=== PATIENT | male | born 1950 | race Caucasian/White ===

== ENCOUNTER 2016-05-31 10:08 | Emergency (ER) | payer OTHER ==
[2016-05-31] MEDS ORDERED: NS 0.9% 1000 ML* 1,000 ML IV ONE ×2 (11:01→12:42)
[2016-05-31] MEDS ORDERED: Ketorolac INJ* 30 MG/ML 1 ML VIAL IV ONE (11:01)
[2016-05-31] MEDS ORDERED: HYDROmorphone INJ* 1 MG/ML CARPUJECT SYRINGE IV ONE ×2 (11:01→12:42)
[2016-05-31] MEDS ORDERED: Ondansetron INJ* 2 MG/ML VIAL IV ONE (11:01)
[2016-05-31 11:19] LABS: Hematocrit 48 % (42-52); Hemoglobin 16.2 g/dl (14.0-18.0); Mean Corpuscular HGB Conc 34 g/dl (31-36); Mean Corpuscular Hemoglobin 29 pg (27-31); Mean Corpuscular Volume 84 fL (80-94); Mean Platelet Volume 9 um3 (7.4-10.4); Red Blood Count 5.68 10^6/ul (4.0-5.4); Red Cell Distribution Width 13 % (10.5-15); White Blood Count 10.1 10^3/ul (3.5-10.8)
[2016-05-31 11:30] LABS: Albumin 4.2 g/dL (3.2-5.2); BUN/Creatinine Ratio 18.9 (8-20); C Reactive Protein 1.47 mg/L (< 5.00); Calcium 9.1 mg/dL (8.6-10.3); EGFR African American 109.3 (>60); Globulin 2.7 g/dL (2-4); Potassium 3.7 mmol/L (3.5-5.0); Total Protein 6.9 g/dL (6.4-8.9)
--- NOTE | 2016-05-31 12:12 | RAD ---
INDICATION: Right flank pain COMPARISON: CT January 22, 2016 TECHNIQUE: Noncontrast axial source images were acquired from the level hemidiaphragms to the symphysis pubis as part of CT imaging for renal stone. Lung bases: The lung bases are clear. Liver: The liver is normal in size. Noncontrast imaging shows no evidence of a hepatic mass or ductal dilatation. Gallbladder: There are no calcified gallstones. There is no evidence of wall thickening or pericholecystic fluid.. Spleen: The spleen is normal in size. The noncontrast CT appearance is normal. Pancreas: Noncontrast imaging shows no pancreatic mass or ductal dilitation. Adrenal glands: No masses are identified. Kidneys/Bladder: There is a 3 mm calculus in the distal right ureter producing mild right-sided hydronephrosis and hydroureter. There is an additional 4 mm calculus in the upper pole the right kidney. There are multiple 1 to 2 mm nonobstructive calculi in the left kidney. There are no bladder calculi. There is no renal mass on noncontrast imaging. There is mild right-sided perinephric stranding Adenopathy: There is no evidence of intraperitoneal or retroperitoneal adenopathy. Evaluation is limited without oral contrast. Fluid collections: There are no free or localized fluid collections. Vessels: The aorta and iliac vessels are normal in caliber. There are no significant atherosclerotic changes. The IVC appears normal Pelvic organs: The prostate and seminal vesicles appear normal GI tract: Evaluation of the bowel is limited without oral contrast. The stomach, small bowel, and lower GI tract appear grossly normal. There are no obstructive findings. The appendix is visualized and appears normal. Soft tissues: No soft tissue abnormalities of the extraperitoneal abdomen or pelvis are identified. Osseous structures: There are no acute osseous findings. IMPRESSION: BILATERAL NEPHROLITHIASIS WITH 3 MM DISTAL RIGHT URETERAL] PRODUCING MILD OBSTRUCTIVE FINDINGS
[2016-05-31] MEDS ORDERED: Ondansetron ODT TAB* 4 MG PO ONE (12:42)
[2016-05-31 13:13] LABS: Urine Bacteria Absent (Absent); Urine Bilirubin Negative (Negative); Urine Glucose Negative (Negative); Urine Nitrite Negative (Negative)
[2016-05-31 14:52] VITALS: BP 131/67
--- NOTE | 2016-05-31 15:00 | ED ---
Ambreen Poe Rebecca, scribed for Jaime Oreilly MD on 05/31/16 at 1032 . Abdominal Pain/Male - HPI Summary HPI Summary: Garrett Ross is a 65 y/o M who presents to ED c/o abd pain. Pain began suddenly at 0700 this morning and has been constant since onset. Pain is in the RLQ and R flank with radiation to the R testicle. Pain is currently severe, ranked 10/10 and characterized as sharp. Sx aggravated and alleviated by nothing , unchanged by Advil (taken at 0700). Additionally c/o N/V and dizziness. PMHx kidney stones. Current sx are similar to prior episodes of kidney stones, but more severe. - History of Current Complaint Chief Complaint: EDFlankPain Stated Complaint: RT SIDE FLANK PAIN/POSS KIDNEY STONE Time Seen by Provider: 05/31/16 10:30 Hx Obtained From: Patient Onset/Duration: Sudden Onset, Lasting Hours - 3 hours, Still Present Timing: Constant Severity Initially: Severe Severity Currently: Severe Pain Intensity: 10 Pain Scale Used: 0-10 Numeric Location: Discrete At: RLQ, Flank - Right Radiates: Yes Radiates to: Inguinal - R testicle Character: Sharp Aggravating Factor(s): Nothing Alleviating Factor(s): Nothing Associated Signs And Symptoms: Positive: Dizzy, Nausea, Vomiting Similar Episode/Dx As:: Prior kidney stones - Allergies/Home Medications Allergies/Adverse Reactions: Allergies Allergy/AdvReac Type Severity Reaction Status Date / Time HAYFEVER/SEASONAL Allergy SNEEZING, Uncoded 05/31/16 10:14 ITCHY WATERY EYES PMH/Surg Hx/FS Hx/Imm Hx History: Reports: Hx Kidney Stones - BILATERAL PRESENTLY Musculoskeletal History: Reports: Hx Arthritis - BILATERAL WRIST, Hx Tendonitis - POSSIBLE BILATERAL WRIST Sensory History: Reports: Hx Contacts or Glasses - GLASSES Denies: Hx Hearing Aid Opthamlomology History: Reports: Hx Contacts or Glasses - GLASSES - Surgical History Surgery Procedure, Year, and Place: 1988 SEPTOPLASTY, [facility] [place]. 2008 CYSTOSCOPY WITH LITHOTRIPSY LEFT KIDNEY STONE, [facility] [place] Hx Anesthesia Reactions: No Infectious Disease History: No Infectious Disease History: Denies: Traveled Outside the [place] in Last 30 Days - Family History Known Family History: Positive: Hypertension, Diabetes - Social History Alcohol Use: None Substance Use Type: Reports: None Smoking Status (MU): Never Smoked Tobacco Review of Systems Positive: Abdominal Pain - RLQ, R flank radiating into R testicle, Vomiting, Nausea Neurological: Other - Dizziness All Other Systems Reviewed And Are Negative: Yes Physical Exam Triage Information Reviewed: Yes Vital Signs On Initial Exam: Initial Vitals Temp Pulse Resp BP Pulse Ox 98.7 F 73 22 143/73 98 05/31/16 10:14 05/31/16 10:14 05/31/16 10:14 05/31/16 10:14 05/31/16 10:14 Vital Signs Reviewed: Yes Appearance: Positive: Well-Appearing, No Pain Distress Skin: Positive: Diaphoretic, Pale Head/Face: Positive: Normal Head/Face Inspection Eyes: Positive: Normal ENT: Positive: Normal ENT inspection Neck: Positive: Supple, Nontender Respiratory/Lung Sounds: Positive: Clear to Auscultation, Breath Sounds Present Cardiovascular: Positive: RRR, Pulses are Symmetrical in both Upper and Lower Extremities Abdomen Description: Positive: Nontender, Soft Bowel Sounds: Positive: Present Musculoskeletal: Positive: Normal - Back is nontender Neurological: Positive: Normal Psychiatric: Positive: Normal Diagnostics - Vital Signs Vital Signs Temp Pulse Resp BP Pulse Ox 05/31/16 10:14 98.7 F 73 22 143/73 98 - Laboratory Lab Results: Lab Results 05/31/16 05/31/16 05/31/16 Range/Units 10:30 10:30 10:30 WBC 10.1 (3.5-10.8) 10^3/ul RBC 5.68 H (4.0-5.4) 10^6/ul Hgb 16.2 (14.0-18.0) g/dl Hct 48 (42-52) % MCV 84 (80-94) fL MCH 29 (27-31) pg MCHC 34 (31-36) g/dl RDW 13 (10.5-15) % Plt Count 190 (150-450) 10^3/ul MPV 9 (7.4-10.4) um3 Neut % (Auto) 82.3 (38-83) % Lymph % (Auto) 10.3 L (25-47) % [place] % (Auto) 6.3 (1-9) % Eos % (Auto) 0.1 (0-6) % Baso % (Auto) 1.0 (0-2) % Absolute Neuts (auto) 8.3 H (1.5-7.7) 10^3/ul Absolute Lymphs (auto) 1.0 (1.0-4.8) 10^3/ul Absolute Monos (auto) 0.6 (0-0.8) 10^3/ul Absolute Eos (auto) 0 (0-0.6) 10^3/ul Absolute Basos (auto) 0.1 (0-0.2) 10^3/ul Absolute Nucleated RBC 0.01 10^3/ul Nucleated RBC % 0 Sodium 134 (133-145) mmol/L Potassium 3.7 (3.5-5.0) mmol/L Chloride 105 (101-111) mmol/L Carbon Dioxide 19 L (22-32) mmol/L Anion Gap 10 (2-11) mmol/L BUN 17 (6-24) mg/dL Creatinine 0.90 (0.67-1.17) mg/dL Est GFR ( Amer) 109.3 (>60) Est GFR (Non-Af Amer) 85.0 (>60) BUN/Creatinine Ratio 18.9 (8-20) Glucose 112 H (70-100) mg/dL Lactic Acid 1.3 (0.5-2.0) mmol/L Calcium 9.1 (8.6-10.3) mg/dL Total Bilirubin 1.00 (0.2-1.0) mg/dL AST 16 (13-39) U/L ALT 17 (7-52) U/L Alkaline Phosphatase 87 (34-104) U/L Troponin I 0.00 (<0.04) ng/mL C-Reactive Protein 1.47 (< 5.00) mg/L Total Protein 6.9 (6.4-8.9) g/dL Albumin 4.2 (3.2-5.2) g/dL Globulin 2.7 (2-4) g/dL Albumin/Globulin Ratio 1.6 (1-3) Lipase 31 (11.0-82.0) U/L Urine Color Urine Appearance Urine pH (5-9) Ur Specific [place] (1.010-1.030) Urine Protein (Negative) Urine Ketones (Negative) Urine Blood (Negative) Urine Nitrate (Negative) Urine Bilirubin (Negative) Urine Urobilinogen (Negative) Ur Leukocyte Esterase (Negative) Urine WBC (Auto) (Absent) Urine RBC (Auto) (Absent) Ur Squamous Epith Cells (Absent) Urine Bacteria (Absent) Urine Glucose (Negative) 05/31/16 Range/Units 13:00 WBC (3.5-10.8) 10^3/ul RBC (4.0-5.4) 10^6/ul Hgb (14.0-18.0) g/dl Hct (42-52) % MCV (80-94) fL MCH (27-31) pg MCHC (31-36) g/dl RDW (10.5-15) % Plt Count (150-450) 10^3/ul MPV (7.4-10.4) um3 Neut % (Auto) (38-83) % Lymph % (Auto) (25-47) % Providence % (Auto) (1-9) % Eos % (Auto) (0-6) % Baso % (Auto) (0-2) % Absolute Neuts (auto) (1.5-7.7) 10^3/ul Absolute Lymphs (auto) (1.0-4.8) 10^3/ul Absolute Monos (auto) (0-0.8) 10^3/ul Absolute Eos (auto) (0-0.6) 10^3/ul Absolute Basos (auto) (0-0.2) 10^3/ul Absolute Nucleated RBC 10^3/ul Nucleated RBC % Sodium (133-145) mmol/L Potassium (3.5-5.0) mmol/L Chloride (101-111) mmol/L Carbon Dioxide (22-32) mmol/L Anion Gap (2-11) mmol/L BUN (6-24) mg/dL Creatinine (0.67-1.17) mg/dL Est GFR ( Amer) (>60) Est GFR (Non-Af Amer) (>60) BUN/Creatinine Ratio (8-20) Glucose (70-100) mg/dL Lactic Acid (0.5-2.0) mmol/L Calcium (8.6-10.3) mg/dL Total Bilirubin (0.2-1.0) mg/dL AST (13-39) U/L ALT (7-52) U/L Alkaline Phosphatase (34-104) U/L Troponin I (<0.04) ng/mL C-Reactive Protein (< 5.00) mg/L Total Protein (6.4-8.9) g/dL Albumin (3.2-5.2) g/dL Globulin (2-4) g/dL Albumin/Globulin Ratio (1-3) Lipase (11.0-82.0) U/L Urine Color Yellow Urine Appearance Cloudy Urine pH 6.0 (5-9) Ur Specific [place] 1.017 (1.010-1.030) Urine Protein 1+(30 mg/dl) H (Negative) Urine Ketones Trace H (Negative) Urine Blood 3+ H (Negative) Urine Nitrate Negative (Negative) Urine Bilirubin Negative (Negative) Urine Urobilinogen Negative (Negative) Ur Leukocyte Esterase Negative (Negative) Urine WBC (Auto) Absent (Absent) Urine RBC (Auto) 3+(>10/hpf) H (Absent) Ur Squamous Epith Cells Present H (Absent) Urine Bacteria Absent (Absent) Urine Glucose Negative (Negative) Result Diagrams: 05/31/16 10:30 05/31/16 10:30 Lab Statement: Any lab studies that have been ordered have been reviewed, and results considered in the medical decision making process. - CT CT Abd/Pel CT Interpretation Completed By: Radiologist - BILATERAL NEPHROLITHIASIS WITH 3 MM DISTAL RIGHT URETERAL] PRODUCING MILD OBSTRUCTIVE FINDINGS Re-Evaluation - Re-Evaluation First Eval Re-Evaluation Time: 12:53 Change: Improved Comment: Discussed results and findings. He is feeling significantly better. Abdominal Pain Fem Course/Dx - Course Assessment/Plan: Garrett Ross is a 65 y/o M with a CC of RLQ and R flank pain with radiation to the R testicle for 3 hours PRESS LOADER (sudden onset at 0700 this morning). Additionally c/o N/V and dizziness. PMHx kidney stones. Current presentation is similar to prior episodes of kidney stones, but more severe. CT Abd/Pel reveals: "BILATERAL NEPHROLITHIASIS WITH 3 MM DISTAL RIGHT URETERAL] PRODUCING MILD. OBSTRUCTIVE FINDINGS." Pt will be D/C to home with a dx of kidney stone and a followup with his PCP. - Diagnoses Provider Diagnoses: Kidney stone Discharge - Discharge Plan Condition: Stable Disposition: HOME Prescriptions: Ondansetron ODT TAB* [Zofran Odt TAB*] 4 mg PO Q6H PRN #20 tab.odt PRN Reason: Nausea/Vomiting Tamsulosin CAP* [Flomax CAP*] 0.4 mg PO DAILY #7 cap oxyCODONE/Acetamin 5/325 MG* [Percocet 5/325 TAB*] 1 tab PO Q6H PRN #20 tab MDD 4 PRN Reason: Pain Patient Education Materials: Kidney Stones (ED) Referrals: Robby Meyer MD [Medical Doctor] - (Follow up with Dr. Meyer, urologist, in the next 3 days. ) The documentation as recorded by the Ambreen anaya Rebecca accurately reflects the service I personally performed and the decisions made by , Jaime Oreilly MD.
== END 2016-05-31 14:51 | disposition home or self-care (01) ==
LOC: ED 10:08
DX: N20.0 Calculus of kidney (principal); R10.31 Right lower quadrant pain; R42 Dizziness and giddiness; R11.2 Nausea with vomiting, unspecified
CPT/HCPCS: 36415; 74176; 80053; 81003; 81015; 83605; 83690; 84484; 85025; 86140; 96374; 96375; 99283; A9270-GY; J1170; J1885; J2405

== ENCOUNTER 2016-08-22 07:43 | Day surgery (SDC) | payer OTHER ==
--- NOTE | 2016-08-13 15:45 | HP ---
PREOPERATIVE HISTORY AND PHYSICAL EXAMINATION: DATE OF SURGERY/ADMISSION: 08/22/16 DATE OF OFFICE VISIT/ENCOUNTER: 08/13/16 ATTENDING SURGEON: Ellen Graham MD PROCEDURE: Right wrist carpal tunnel release. CHIEF COMPLAINT: Right hand numbness and tingling. HISTORY OF PRESENT ILLNESS: This is a 65-year-old male who complains of numbness and tingling in bi lateral hands, worse on the right than on the left. He also had pain in his bilateral wrists and sw elling on the dorsal aspect of the wrist. He does a lot of working out including lifting weights an d karate, but denies any injury to either wrist or hand. He has symptoms when he wakes up in the mo rning and symptoms during the day. The symptoms that bother him the most are the numbness and tingl ing, not so much of the pain. The numbness and tingling in his right hand involves his thumb, index , and middle finger. Clinically, he has been determined to have some carpal tunnel syndrome and the patient is interested in proceeding with surgical intervention at this point. PAST MEDICAL HISTORY: 1. History of kidney stones. 2. Seasonal allergies. PAST SURGICAL HISTORY: 1. Septoplasty. 2. Kidney stone blasting. 3. Tonsillectomy. 4. Turbinate reduction CURRENT MEDICATIONS: None. ALLERGIES: No known drug allergies. FAMILY HISTORY: Diabetes and heart disease. 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 He denies tobacco use or recreational drug use and alcohol use and he exercises on a regular basis. REVIEW OF SYSTEMS: General: Negative for fevers, chills, or night sweats. No known anesthesia pro blems. HEENT: Negative for headache, lightheadedness, or syncopal episodes. Integumentary: Negat juanito for abrasions, lesions, or open wounds. Cardiothoracic: Negative for hypertension, chest pain, palpitations, or edema. Pulmonary: Negative for shortness of breath with exertion, chronic cough, or COPD. GI: Negative for nausea, vomiting, diarrhea, constipation, or GERD. : Positive for hi story of kidney stones, negative for nocturia, urinary frequency, urgency or history of UTIs. Muscu loskeletal: Positive for current complaint. Negative for chronic or intermittent back pain or histo ry of fractures. Neurological: Negative for history of seizure, stroke, or epilepsy. Endocrine: Ne gative for diabetes or thyroid issues. Hematologic: Negative for easy bruising, anemia, excessive bleeding, or history of DVT. Infectious Disease: Negative for history of MRSA, hepatitis C, or HIV . PHYSICAL EXAMINATION GENERAL: Well-developed, well-nourished, 65-year-old male, in no acute distress. VITAL SIGNS: Height 5 feet 10 inches, weight 187 pounds, pulse rate 68, blood pressure 122/71. HEENT: Normocephalic, atraumatic. Pupils are equal, round, reactive to light and accommodation. E xtraocular movements are intact. NECK: Supple. No palpable lymph nodes. Throat is clear. PULMONARY: Lungs are clear to auscultation bilaterally. No wheezes, rales, or rhonchi. CARDIOVASCULAR: Regular rate and rhythm. S1, S2. No murmurs, rubs, or gallops. No edema. ABDOMEN: Positive bowel sounds. Soft, nontender. NEUROLOGIC: Alert and oriented x3. Cranial nerves II through XII are intact. Sensation is intact t o light touch. PERIPHERAL VASCULAR: 2+ radial and ulnar pulses. Negative Denilson test. MUSCULOSKELETAL: On exam of the right hand, he has thenar wasting. Upon inspection, he can flex an d extend his fingers into a full fist. He has decreased sensation to light touch on the tips of his index, thumb, and middle fingers on the right hand. Positive Tinel's sign. He has swelling and st iffness in his bilateral wrists, worse on the right than on the left that has relatively good motion with flexion and extension of both wrists. IMAGING STUDIES: X-rays AP and lateral and oblique of both wrists showed severe degenerative arthr itis from old scapholunate ligament injuries bilaterally. IMPRESSION: Right carpal tunnel syndrome. Bilateral scapholunate advanced collapse. PLAN: The patient is scheduled to undergo a right carpal tunnel release with Dr. Graham on 08/22/16. He will return to the office in 10 to 14 days postop for followup and suture removal. A prescript ion for Ultracet was e-scribed to the patient's pharmacy for postoperative pain management. YOSELIN GOLD [id number]/[facility] #: [id number]
[~2016-08-22 07:43] MED LIST: Famotidine IV* 10 MG/ML 2 ML (20 mg) IV ONE
[2016-08-22] MEDS ORDERED: Buffered Lidocaine 1% SYRIN* 5 ML/SYR SYRINGE ONE (07:58)
[2016-08-22] MEDS ORDERED: Famotidine IV* 10 MG/ML 2 ML (20 mg) ONE (07:59)
[2016-08-22] MEDS ORDERED: Lidocaine 1% INJ* 10 MG/ML 30 ML SDV ONE (08:29)
[2016-08-22] MEDS ORDERED: fentaNYL* 50 MCG/ML 2 ML VIAL (100 MCG VIAL) ONE (09:11)
[2016-08-22] MEDS ORDERED: Midazolam* 1 MG/ML 5 ML VIAL (5 MG) ONE (09:11)
[2016-08-22] MEDS ORDERED: Ketorolac INJ* 30 MG/ML 1 ML VIAL ONE (09:18)
[2016-08-22] MEDS ORDERED: Propofol* 10 MG/ML 20 ML BTL IV PUSH ONE (09:18)
[2016-08-22] MEDS ORDERED: Ondansetron INJ* 2 MG/ML VIAL ONE (09:18)
[2016-08-22] MEDS ORDERED: Lidocaine 2% PF * 5 ML VIAL ONE (09:18)
[2016-08-22] MEDS ORDERED: Acetaminophen TAB* 325 MG PO PRN (09:36)
[2016-08-22 10:03] VITALS: BP 105/74
--- NOTE | 2016-08-23 | OP ---
DATE OF OPERATION: 08/22/16 [facility] DATE OF : 52 SURGEON: Ellen Graham MD SALMON GILLNET VESSEL OPERATOR: YOSELIN Bonner ANESTHESIOLOGIST: Carlotta Wong MD ANESTHESIA: Local MAC. PRE-OP DIAGNOSIS: Right carpal tunnel syndrome. POST-OP DIAGNOSIS: Right carpal tunnel syndrome. OPERATIVE PROCEDURE: Right carpal tunnel release. ESTIMATED BLOOD LOSS: Zero. TOURNIQUET TIME: About 8 minutes. INDICATION FOR PROCEDURE: Garrett is a 65-year-old man with numbness and tingling in the median nerve distribution of his right hand. He presents for right carpal tunnel release. DESCRIPTION OF PROCEDURE: The patient was brought to the operating room, was given a sedation anesthetic and a local infiltration of 10 cc of 1% plain lidocaine. Skin of his right hand and forearm was prepped and draped in the usual sterile fashion. The hand and forearm were exsanguinated and the tourniquet elevated to 250 mmHg. A longitudinal incision was made in the palm in line with the ring finger. We dissected through the subcutaneous tissue down to the transverse carpal ligament. The ligament was divided sharply with a knife and then more proximally with the scissors. The nerve was dissected free from the surrounding tissue and there was an area of moderate compression at the mid portion of the ligament. The wound was irrigated and skin edges were reapproximated with 4-0 nylon suture. The wound was dressed with Xeroform , 4x4, Webril, and an Narinder wrap. The patient tolerated the procedure well and was brought to the recovery room in good condition. [id number]/[facility] #: [id number] [facility]ITAL[facility]
== END 2016-08-22 10:15 | disposition home or self-care (01) ==
LOC: OREAST 07:43
PROVIDERS: ATTEND Orthopaedic Surgery
DX: G56.01 Carpal tunnel syndrome, right upper limb (principal); M19.90 Unspecified osteoarthritis, unspecified site
CPT/HCPCS: J1885; J2001; J2250; J2405; J2704; J3010

== ENCOUNTER → 2017-06-05 07:16 | Day surgery (SDC) | payer OTHER ==
--- NOTE | 2017-06-03 10:32 | HP ---
CC: Dr. Mejia * HISTORY AND PHYSICAL: DATE OF PLANNED ADMISSION AND SURGERY: 06/05/17 HISTORY OF PRESENT ILLNESS: Mr. Ross is a 66-year-old white male who is admitted with a right ureteral calculus for cystoscopy, right ureteroscopy, laser lithotripsy, and right ureteral stent placement. Mr. Ross is a known stone former, and in 2005, he required a left ureteroscopy , laser lithotripsy for a left ureteral calculus. He was worked up in March 2017 because of post-exercise gross hematuria and mild left flank pain. He had a noncontrast CT of the abdomen and pelvis, which showed a 6-mm calculus in the upper pole of the right kidney and calcifications within the prostate. Punctate calcui seen in the Lt kidney. No other abnormalities were noted. He had an office cystoscopy, which showed moderate prostate enlargement, but no bladder lesions or calculi. The patient presented to my office on 06/02/17 with recurrent episodes of acute right flank pain. The pain was severe enough that he took oxycodone for pain control. He did not have any fever or chills and no voiding symptoms. Renal ultrasound in my office showed moderate Rt hydronephrosis and hydroureter and 6- mm calculus located in the right ureter at the level of the pelvic brim. The patient was managed conservatively with increased fluid intake, alpha lazaro, and pain medications. He continued to be symptomatic. Because of the persistent symptoms, he is admitted for the above procedure. PAST MEDICAL HISTORY AND SYSTEM REVIEW: He is in excellent health. MEDICATIONS: He is on no chronic medications. ALLERGIES: He denies any allergies to medications. REVIEW OF SYSTEMS: He denies any cardiac or pulmonary diseases or symptoms. PHYSICAL EXAMINATION GENERAL: Pleasant healthy-looking white male, who is in moderate pain. VITAL SIGNS: Blood pressure 130/70, pulse of 80, temperature 96.5. LUNGS: Clear. HEART: Regular and rhythmic. No murmurs. ABDOMEN: Soft. No masses or tenderness. There is mild right CVA tenderness. EXTERNAL GENITALIA: Normal. Prostate exam done earlier this year showed a slightly enlarged, but nonsuspicious prostate. IMPRESSION: Recurrent episodes of right flank pain secondary to a 6-mm right ureteral calculus. PLAN: Right ureteroscopy, laser lithotripsy, and right ureteral stent placement. I discussed the above plans with the patient and his and all their questions were answered. [id number]/[facility] [place]: [id number] KISHOR
[~2017-06-05 07:16] MED LIST changes: +Buffered Lidocaine 0.9% SYRIN* 5 ML/SYR SYRINGE INTRADERM ONE; +Dexamethasone IV* 4 MG/ML 1 ML (4 MG) ONE; +Famotidine IV* 10 MG/ML 2 ML (20 mg) ONE; +Iohexol 180 (CONTRAST) 10 ML SDV IV ONE; +Ketorolac INJ* 30 MG/ML 1 ML VIAL ONE; +Lidocaine 2% PF * 5 ML VIAL ONE; +Metoclopramide TAB* 10 MG ONE; +Metoclopramide TAB* 10 MG PO ONE; +Midazolam* 1 MG/ML 5 ML VIAL (5 MG) ONE; +Naloxone* 0.4 MG/ML 1 ML VIAL IV PRN; +Ondansetron INJ* 2 MG/ML VIAL IV PRN; +Ondansetron INJ* 2 MG/ML VIAL ONE; +Propofol* 10 MG/ML 20 ML BTL IV PUSH ONE; +cefTRIAXone(*) 2 GM ADDV.VIAL IVPB ONE; +fentaNYL* 50 MCG/ML 2 ML VIAL (100 MCG VIAL) IV PRN; +fentaNYL* 50 MCG/ML 2 ML VIAL (100 MCG VIAL) ONE
--- NOTE | 2017-06-05 12:15 | RAD ---
INDICATION: Right ureteral stent insertion, calculus of kidney COMPARISONS: CT dated January 23, 2017 TECHNIQUE: Fluoroscopy was provided for a retrograde pyelogram and stent placement. Total fluoroscopy time is: 3 seconds FINDINGS: Spot images demonstrate contrast within the right renal collecting system. A right ureteral stent is noted. IMPRESSION: FLUOROSCOPY WAS PROVIDED FOR A RETROGRADE PYELOGRAM AND STENT PLACEMENT CPT II Codes: 6045F
[2017-06-05 13:57] VITALS: BP 141/83
--- NOTE | 2017-06-06 10:53 | OP ---
CC: Dr. Mejia OPERATIVE REPORT: DATE OF OPERATION: 06/05/17 DATE OF : 52 SURGEON: Rico Polanco MD ANESTHESIOLOGIST: Rudy Martins MD ANESTHESIA: General. PRE-OP DIAGNOSIS: Right ureteral calculus (7 mm). POST-OP DIAGNOSIS: Right ureteral calculus (7 mm). OPERATIVE PROCEDURE: 1. Cystoscopy. 2. Right ureteroscopy and laser lithotripsy of right ureteral calculus. 3. Right retrograde pyelography and placement of right ureteral stent (6-Kinyarwanda ). INDICATIONS: Mr. Ross is a 66-year-old white male, who is a known sone former and who was worked up 4 months ago because of recurrent episodes of gross hematuria and left flank pain and was noted to have punctate nonobstructing calculi in the left kidney and a 7 mm calculus in the upper pole calyx of the right kidney. Cystoscopy showed no bladder lesions and the gross hematuria was assumed to be secondary to the Rt renal calculus. He presented to the office 2 days ago with recurrent episodes of right renal colic and was noted on renal ultrasound to have a 7 to 8 mm obstructing calculus in the Rt ureter just distal to its mid course. Because of the size of the stone, the persistent pain, the patient is admitted for the above procedure. PATHOLOGY AT CYSTOSCOPY: The penile and bulbar urethrae looked normal. The prostatic urethra measured 2.5 cm in length and there was only moderate enlargement and obstruction by the prostate. Examination of the bladder showed normal ureteral orifices. There were no suspicious bladder lesions seen. No calculi or diverticuli were noted. Clear efflux was seen coming from the left ureteral orifice and pinkish efflux from the right orifice. Upon right ureteroscopy, there was a 7 to 8 mm calculus that was impacted in the lower half of the right ureter about 5 cm above the level of the orifice. The calculus had the gross appearance of a calcium oxalate stone. Retrograde pyelography showed moderate right hydronephrosis. DESCRIPTION OF PROCEDURE: After successful general anesthesia, the patient was placed in the lithotomy position and was prepped and draped for a cystoscopy. Cystoscopy was performed. The bladder was carefully inspected and the above findings were noted. A flexible tip guidewire was then introduced into the right orifice and positioned in the area of the renal pelvis. A 6.5 semirigid ureteroscope was then introduced into the bladder. A flexible tip basket was passed through the port of the ureteroscope and its flexible tip was introduced into the right orifice allowing the atraumatic introduction of the ureteroscope inside the ureter. The calculus was identified. Using the 550 micron laser fiber, the stone was broken into multiple fragments. Care was taken not to cause any damage to the ureteral wall. The stone fragments were then extracted with the basket and sent for stone analysis. Final inspection showed intact ureteral wall and no residual stone fragments. Retrograde pyelography was then performed. A size 6-Kinyarwanda stent was then placed with the proximal end coiling in the renal pelvis and the distal end coiling inside the bladder. There was good drainage of contrast from the kidney and no extravasation. The patient tolerated the procedure well and left the operating room in good condition. The plan is to leave the stent in place for 7 to 10 days. It will be removed in the office under local anesthesia. [id number]/[facility] #: [id number] MTDD
== END | disposition home or self-care (01) ==
LOC: OR 07:16
PROVIDERS: ATTEND Urology
DX: N13.2 Hydronephrosis with renal and ureteral calculous obstruction (principal); R31.0 Gross hematuria; Z87.442 Personal history of urinary calculi
CPT/HCPCS: 74420; 82365; 88300; A9270-GY; C1876; J0696; J1100; J1885; J2250; J2405; J2704; J3010

== ENCOUNTER 2018-08-03 10:01 | Day surgery (SDC) | payer OTHER ==
--- NOTE | 2018-06-28 16:15 | HP ---
PREOPERATIVE HISTORY AND PHYSICAL: DATE OF ADMISSION/SURGERY: 07/02/18 - [facility] DATE OF OFFICE VISIT/ENCOUNTER: 06/28/18 ATTENDING SURGEON: Ellen Graham MD * (DICTATED BY YOSELIN GOLD) PROCEDURE: Left wrist carpal tunnel release. CHIEF COMPLAINT: Numbness and tingling in left hand. HISTORY OF PRESENT ILLNESS: This is a 67-year-old male who complains of numbness and tingling in his left hand that has been ongoing for a few years now. He does a lot of working out including lifting weights and karate, but denies any injury to the left wrist. He has symptoms when he wakes up in the morning and symptoms starting the day. The numbness and the tingling are most bothersome and involve his thumb, index and middle finger. He had a carpal tunnel release performed on his right wrist a couple of years ago and has done quite well with that. He is now interested in pursuing a carpal tunnel release for his left wrist. The patient is currently being treated for prostatitis which he has had over a year. He is on levofloxacin for a 4-week course. PAST MEDICAL HISTORY: 1. History of kidney stones. 2. Seasonal allergies. 3. Prostatitis. PAST SURGICAL HISTORY: 1. Right carpal tunnel release. 2. Septoplasty. 3. Kidney stone blasting. 4. Tonsillectomy. 5. Turbinate reduction. CURRENT MEDICATIONS: 1. Levofloxacin 500 mg 1 tab daily. 2. Probiotic. ALLERGIES: No known drug allergies. FAMILY MEDICAL HISTORY: Diabetes and heart disease. 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 He denies tobacco use, recreational drug use and does not drink alcohol. He exercises on a regular basis. REVIEW OF SYSTEMS: Negative for general, cephalic, cardiovascular, respiratory , GI. is positive for pelvic pain secondary to prostatitis. Negative for other musculoskeletal, integumentary, endocrine, neurologic, and hematologic symptoms. Infectious Disease: Negative for MRSA, hepatitis C, HIV. PHYSICAL EXAMINATION GENERAL: Well-developed, well-nourished 67-year-old male, in no acute distress. VITAL SIGNS: Height 5 feet 10 inches, weight 188 pounds, pulse rate 72, blood pressure 116/70. HEENT: Normocephalic, atraumatic. Pupils are equal, round, and reactive to light and accommodation. Extraocular movements are intact. Throat is clear. NECK: Supple. No palpable lymph nodes. PULMONARY: Lungs are clear to auscultation bilaterally. No wheezes, rales, or rhonchi. CARDIOVASCULAR: Regular rate and rhythm. S1, S2. No murmurs, rubs, or gallops. No edema. ABDOMEN: Positive bowel sounds, soft, nontender. NEUROLOGICAL: Alert and oriented x3. Cranial nerves II through XII are intact. Sensation is intact to light touch. MUSCULOSKELETAL: On exam of his left hand, he has no thenar wasting, but he does have weakness with thumb abduction. He has good motion in his fingers. He has a positive Tinel sign at the wrist and decreased sensation to light touch at the tips of the index, thumb, and middle fingers. He has some stiffness at the left wrist when he moves through motion but there is no significant decrease of his motion. 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 IMPRESSION: Left carpal tunnel syndrome. PLAN: The patient is scheduled to undergo a left carpal tunnel release with Dr. Graham on 07/02/18. He will return to the office 10 days postop for followup and suture removal. A prescription for Ultracet was e-scribed to the patient's pharmacy for postoperative pain management. YOSELIN GOLD [id number]/[facility] #: [id number] KISHOR
[~2018-08-03 10:01] MED LIST changes: -Buffered Lidocaine 0.9% SYRIN* 5 ML/SYR SYRINGE INTRADERM ONE; +Buffered Lidocaine 1% SYRIN* 1 ML/SYRINGE INTRADERM ONE; -Dexamethasone IV* 4 MG/ML 1 ML (4 MG) ONE; -Famotidine IV* 10 MG/ML 2 ML (20 mg) IV ONE; -Famotidine IV* 10 MG/ML 2 ML (20 mg) ONE; -Iohexol 180 (CONTRAST) 10 ML SDV IV ONE; -Ketorolac INJ* 30 MG/ML 1 ML VIAL ONE; +Lactated Ringers 1000 ML Bag* 1,000 ML IV SCH; -Lidocaine 2% PF * 5 ML VIAL ONE; -Metoclopramide TAB* 10 MG ONE; -Metoclopramide TAB* 10 MG PO ONE; -Midazolam* 1 MG/ML 5 ML VIAL (5 MG) ONE; -Naloxone* 0.4 MG/ML 1 ML VIAL IV PRN; -Ondansetron INJ* 2 MG/ML VIAL IV PRN; -Ondansetron INJ* 2 MG/ML VIAL ONE; -Propofol* 10 MG/ML 20 ML BTL IV PUSH ONE; -cefTRIAXone(*) 2 GM ADDV.VIAL IVPB ONE; -fentaNYL* 50 MCG/ML 2 ML VIAL (100 MCG VIAL) IV PRN; -fentaNYL* 50 MCG/ML 2 ML VIAL (100 MCG VIAL) ONE
[2018-08-03] MEDS ORDERED: Lidocaine 1% INJ* 10 MG/ML 30 ML SDV ONE (11:10)
[2018-08-03] MEDS ORDERED: Midazolam* 1 MG/ML 5 ML VIAL (5 MG) ONE (11:15)
[2018-08-03] MEDS ORDERED: fentaNYL* 50 MCG/ML 2 ML VIAL (100 MCG VIAL) ONE (11:20)
[2018-08-03] MEDS ORDERED: Propofol* 10 MG/ML 20 ML BTL ONE (11:20)
[2018-08-03] MEDS ORDERED: Dexamethasone IV* 4 MG/ML 1 ML (4 MG) ONE (11:29)
[2018-08-03] MEDS ORDERED: Ondansetron INJ* 2 MG/ML VIAL ONE (11:35)
[2018-08-03 11:53] VITALS: BP 115/72
[2018-08-03] MEDS ORDERED: Naloxone* 0.4 MG/ML 1 ML VIAL IV PRN (11:59)
[2018-08-03] MEDS ORDERED: Ondansetron INJ* 2 MG/ML VIAL IV PRN (11:59)
[2018-08-03] MEDS ORDERED: oxyCODONE/Acetamin 5/325 MG* TAB PO PRN (11:59)
[2018-08-03] MEDS ORDERED: fentaNYL* 50 MCG/ML 2 ML VIAL (100 MCG VIAL) IV PRN (11:59)
--- NOTE | 2018-08-03 14:20 | OP ---
DATE OF OPERATION: 08/03/18 [facility] DATE OF : 52 SURGEON: Ellen Graham MD TRUCK BENCH MECHANIC: YOSELIN Knox ANESTHESIA: Local MAC. PRE-OP DIAGNOSIS: Left carpal tunnel syndrome. POST-OP DIAGNOSIS: Left carpal tunnel syndrome. OPERATIVE PROCEDURE: Left carpal tunnel release. INDICATIONS: Garrett is a 67-year-old man who has numbness and tingling in the median nerve distribution of his left hand. He presents for left carpal tunnel release. ESTIMATED BLOOD LOSS: Zero. TOURNIQUET TIME: Approximately 8 minutes. DESCRIPTION OF PROCEDURE: The patient was brought to the operating room, was given a sedation anesthetic, and local infiltration of 10 cc of 1% plain lidocaine to the palm of his left hand. Skin of his left hand and forearm was prepped in the usual sterile fashion. The hand and forearm were exsanguinated and the tourniquet elevated to 250 mmHg. A longitudinal incision was made in the palm in line with the ring finger. We dissected through the subcutaneous tissue down to the transverse carpal ligament. The ligament was divided sharply with the knife and then more proximally with the scissors. The nerve was dissected free from the surrounding tissue. There was an area of moderate compression at the mid portion of the ligament. The wound was irrigated and the skin edges were reapproximated with 4-0 nylon suture. The wound was dressed with Xeroform, 4x4, Webril, and an Nairnder wrap. The patient tolerated the procedure well, was brought to the recovery room in good condition. [id number]/[facility] #: [id number] MTDD
== END 2018-08-03 12:17 | disposition home or self-care (01) ==
LOC: OREAST 10:01
PROVIDERS: ATTEND Orthopaedic Surgery
DX: G56.02 Carpal tunnel syndrome, left upper limb (principal); Z87.442 Personal history of urinary calculi
CPT/HCPCS: J1100; J2250; J2405; J2704; J3010